=== PATIENT | male | born 2000 | race Two or more races ===

== ENCOUNTER 2021-12-26 18:34 | Emergency (ER) | payer BC ==
[2021-12-26 18:58] VITALS: BP 149/89; PULSE 93; TEMP 98.5; BMI 29.2
[2021-12-26] MEDS ORDERED: ONDANSETRON 4 MG TABLET PO ONE (20:00)
[2021-12-26] MEDS ORDERED: ONDANSETRON *ODT* 4 MG TABLET ONE ×2 (20:02→20:05)
== END 2021-12-26 20:37 | disposition home or self-care (01) ==
LOC: JER 18:34
DX: R11.2 Nausea with vomiting, unspecified (principal)
CPT/HCPCS: 99283-25; C9803; U0003; U0005